=== PATIENT | male | born 1995 | race African-American/Black ===

== ENCOUNTER 2024-01-15 19:04 | Emergency (ER) | payer MEDICAID ==
[~2024-01-15] VITALS: Ht 185.4 cm; Wt 86.2 kg
[2024-01-15 19:26] VITALS: BP_SYST 127; PULSE 94; RESP 20; TEMP 98; O2SAT 98
[2024-01-15 20:27] LABS: INFLUENZA TYPE A Negative (NEGATIVE); INFLUENZA TYPE B NEGATIVE (NEGATIVE)
[2024-01-15 20:57] LABS: COVID19 ANTIGEN SOFIA FIA NEGATIVE (NEGATIVE)
[2024-01-15 21:38] VITALS: BP_SYST 127; PULSE 94; RESP 20; TEMP 98; O2SAT 98
== END 2024-01-15 21:31 | disposition home or self-care (01) ==
LOC: SED 19:04
DX: J06.9 Acute upper respiratory infection, unspecified (principal); Z20.822 Contact with and (suspected) exposure to COVID-19
CPT/HCPCS: 36415; 99283